=== PATIENT | female | born 1985 | race American Indian/Alaskan Native ===

== ENCOUNTER 2019-07-03 22:08 | Emergency (ER) | payer OTHER ==
[2019-07-03] MEDS ORDERED: MORPHINE 4 MG/1 ML INJ IV ONE (23:24)
[2019-07-03] MEDS ORDERED: KETOROLAC 30 MG/1 ML INJ IV ONE (23:24)
[2019-07-03] MEDS ORDERED: ONDANSETRON 4 MG/2 ML INJ IV ONE (23:24)
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
[2019-07-04] MEDS ORDERED: diphenhydrAMINE 50 MG/ML VIAL ONE (00:35)
[2019-07-04] MEDS ORDERED: diphenhydrAMINE 50 MG/ML VIAL IV ONE (00:38)
[2019-07-04 02:32] VITALS: BP 136/94
== END 2019-07-04 02:31 | disposition home or self-care (01) ==
LOC: ED 22:08
DX: R51 Headache (principal); M54.2 Cervicalgia; M54.9 Dorsalgia, unspecified; J45.909 Unspecified asthma, uncomplicated; F17.200 Nicotine dependence, unspecified, uncomplicated; Z79.899 Other long term (current) drug therapy; V49.59XA Passenger injured in collision with other motor vehicles in traffic accident, initial encounter; Y93.89 Activity, other specified; Y92.410 Unspecified street and highway as the place of occurrence of the external cause; Y99.8 Other external cause status
CPT/HCPCS: 71101; 72040; 72070; 72100; 73060; 96374; 96375; 99284; J1200; J1885; J2270; J2405